=== PATIENT | male | born 1945 | race Caucasian/White ===

== ENCOUNTER 2022-05-14 14:24 | Emergency (ER) | payer OTHER ==
[~2022-05-14] VITALS: Ht 188 cm; Wt 101.2 kg
[~2022-05-14 14:24] MED LIST: INS70/30PN; INSULANPEN; LISI20; METF500; SOVALDI400 MG; [UNRECOGNIZED DRUG - OTHER]
[2022-05-14] MEDS ORDERED: HYDR1TAB94 PO (16:49)
[2022-05-14] MEDS ORDERED: CEPH500 PO (16:49)
== END 2022-05-14 17:22 | disposition home or self-care (01) ==
LOC: ER 14:24
DX: S68.123A Partial traumatic metacarpophalangeal amputation of left middle finger, initial encounter (principal); E11.9 Type 2 diabetes mellitus without complications; Z79.4 Long term (current) use of insulin; Z79.899 Other long term (current) drug therapy; Z87.891 Personal history of nicotine dependence; W29.3XXA Contact with powered garden and outdoor hand tools and machinery, initial encounter
CPT/HCPCS: 26951; 73130; 96374-59; 96375-59; 99284-25; A9270; J1170; J2405; J7030

== ENCOUNTER 2022-10-07 14:41 | Inpatient (IN) | payer OTHER ==
[~2022-10-07] VITALS: Ht 175.3 cm; Wt 106.4 kg
[~2022-10-07 14:41] MED LIST changes: +CEPH500 PO; +GLUCOPHAGE1000 M1 PO; +HYDR1TAB94 PO; -METF500
[2022-10-07 15:44] LABS: BASOPHILS ABSOLUTE AUTO 0.08 K/mm3 (0.00-0.23); BASOPHILS PERCENT AUTO 1 % (0-2); EOSINOPHILS ABSOLUTE AUTO 0.24 K/mm3 (0.00-0.68); EOSINOPHILS PERCENT AUTO 2 % (0-6); Hematocrit 37.3 % (37.0-53.0); Hemoglobin 12.7 g/dL (13.5-17.5); IMMATURE GRAN ABSOLUTE AUTO 0.07 K/mm3 (0.00-0.10); IMMATURE GRAN PERCENT AUTO 0 % (0-1); LYMPHOCYTES ABSOLUTE AUTO 0.88 K/mm3 (0.84-5.20); LYMPHOCYTES PERCENT AUTO 6 % (21-46); MONOCYTES ABSOLUTE AUTO 0.84 K/mm3 (0.16-1.47); MONOCYTES PERCENT AUTO 5 % (4-13); Mean Corpuscular HGB 29.9 pg (26.0-34.0); Mean Corpuscular Volume 88 fL (80-100); Mean Platelet Volume 10.2 fL (9.1-12.4); NEUTROPHILS PERCENT AUTO 87 % (41-73); Platelet Count 192 K/mm3 (150-400); RDW Coefficient Variation 13.2 % (11.7-14.2); RDW Standard Deviation 42.1 fL (35.1-46.3); Red Blood Cell Count 4.25 M/mm3 (4.30-5.90); White Blood Cell Count 15.91 K/mm3 (4.00-11.30)
[2022-10-07 15:57] LABS: Albumin, Blood 3.5 g/dL (3.4-5.0); Albumin/Globulin Ratio 0.7 (0.8-1.8); Bilirubin, Total 0.3 mg/dL (0.1-1.0); Bun/Creatinine Ratio 25.8 (12.0-20.0); Calcium, Blood 9.7 mg/dL (8.5-10.1); Creatinine, Blood 1.28 mg/dL (0.60-1.20); Globulin, Blood 4.8 g/dL (2.2-4.0); Total Protein, Blood 8.3 g/dL (6.4-8.2)
[2022-10-07 16:08] LABS: Influenza A, PCR NEGATIVE (NEGATIVE); Influenza B, PCR NEGATIVE (NEGATIVE); Resp Syncytial Virus, PCR NEGATIVE (NEGATIVE); SARS-Cov-2 (COVID-19) PCR, MMC NEGATIVE (NEGATIVE)
[2022-10-07 16:35] LABS: Base Excess Venous -1.5 mmol/L; Bicarbonate Venous 22.9 mmol/L (24.0-30.0); PCO2 Venous 42.2 mmHg (38-42); pH Blood Venous 7.36 (7.34-7.37)
[2022-10-07 16:56] LABS: Source, Urine Clean Catch
[2022-10-07 17:03] LABS: Appearance, Urine Clear (Clear); Bilirubin, Urine Neg (Neg); Blood, Urine Neg (Neg); Color, Urine Yellow (P-Yellow); Glucose Qualitative, Urine 4+ (Neg); Ketones, Urine Neg (Neg); Leukocyte Esterase, Urine Neg (Neg); Nitrite, Urine Neg (Neg); Protein, Urine Neg (Neg); Specific Gravity, Urine 1.015 (1.003-1.022); Urobilinogen, Urine NORM (Normal)
[2022-10-07 19:23] LABS: BODY FLUID RBC 0.029 M/mm3 (0-0)
[2022-10-07 20:03] LABS: RBC Count, Synovial Fluid 29000 /mm3 (0-0)
[2022-10-07 20:06] LABS: WBC Count, Synovial Fluid 137980 /mm3 (0-180)
[2022-10-07 21:05] LABS: Eos, Synovial Fluid 1 % (0-2); Lymphs, Synovial Fluid 3 % (0-15); Monocytes/Macrophages, Synovia 2 % (0-65); Neutrophils, Synovial Fluid 94 % (0-24)
[2022-10-07 21:06] LABS: Appearance, Synovial Fluid Cloudy (Clear); Color, Synovial Fluid Dark Yellow (None-P Yel)
--- NOTE | 2022-10-08 05:39 | NUR ---
PT ADMITTED RIGHT BEFORE CHANGE OF SHIFT- PT A&O X 4- PT REPORTS RIGHT KNEE CONTINUES TO BE NUMB FROM THE ASPIRATION IN THE ED- PT MEDICATED FOR PAIN IN THE RIGHT KNEE IN THE NIGHT- PT USES URINAL WITHOUT PROBLEMS-PT NPO AFTER MIDNIGHT FOR ORTHO CONSULT ORDERED- BED LOW POSITION, CALL LIGHT WITHIN REACH
[2022-10-08 05:45] LABS: BASOPHILS ABSOLUTE AUTO 0.08 K/mm3 (0.00-0.23); BASOPHILS PERCENT AUTO 0 % (0-2); EOSINOPHILS ABSOLUTE AUTO 0.03 K/mm3 (0.00-0.68); EOSINOPHILS PERCENT AUTO 0 % (0-6); Hemoglobin 11.7 g/dL (13.5-17.5); IMMATURE GRAN ABSOLUTE AUTO 0.12 K/mm3 (0.00-0.10); IMMATURE GRAN PERCENT AUTO 1 % (0-1); LYMPHOCYTES ABSOLUTE AUTO 1.34 K/mm3 (0.84-5.20); LYMPHOCYTES PERCENT AUTO 7 % (21-46); MONOCYTES ABSOLUTE AUTO 2.16 K/mm3 (0.16-1.47); MONOCYTES PERCENT AUTO 11 % (4-13); Mean Corpuscular HGB 29.2 pg (26.0-34.0); Mean Corpuscular HGB Conc 32.5 g/dL (31.5-36.5); Mean Corpuscular Volume 90 fL (80-100); Mean Platelet Volume 11.1 fL (9.1-12.4); NEUTROPHILS ABSOLUTE AUTO 16.54 K/mm3 (1.96-9.15); NEUTROPHILS PERCENT AUTO 82 % (41-73); Platelet Count 190 K/mm3 (150-400); RDW Coefficient Variation 13.5 % (11.7-14.2); RDW Standard Deviation 44.1 fL (35.1-46.3); Red Blood Cell Count 4.01 M/mm3 (4.30-5.90); White Blood Cell Count 20.27 K/mm3 (4.00-11.30)
[2022-10-08 06:30] LABS: Magnesium, Blood 2.2 mg/dL (1.6-2.4)
[2022-10-08 06:31] LABS: Albumin, Blood 3.1 g/dL (3.4-5.0); Albumin/Globulin Ratio 0.7 (0.8-1.8); Bilirubin, Total 0.3 mg/dL (0.1-1.0); Bun/Creatinine Ratio 23.3 (12.0-20.0); Calcium, Blood 9.3 mg/dL (8.5-10.1); Creatinine, Blood 1.5 mg/dL (0.60-1.20); Globulin, Blood 4.5 g/dL (2.2-4.0); Potassium, Blood 4.1 mmol/L (3.5-5.5); Total Protein, Blood 7.6 g/dL (6.4-8.2)
--- NOTE | 2022-10-08 17:29 | NUR ---
SHIFT SUMMARY: PT A&O X4. PT PLEASANT AND COOPERATIVE WITH CARE. PT WAS UPSET THIS AM DUE TO THE FACT THAT HE WAS IN 9-10/10 PAIN AND 5MG OXYCODONE DID NOT HELP. TALKED TO DR. MELISSA WHO ORDERED PT 50MCG FENTANYL Q4 PRN. PT STATES FENTANYL WORKS GREAT FOR HIS PAIN. PT ALSO VERY CONCERNED ABOUT HOME MEDICATIONS NOT BEING ON EMAR AND THE FACT HE COULD NOT EAT ANYTHING. INFORMED PT THAT HE IS NPO UNTIL ORTHO CONSULT AND WOULD NEED A LIST OF HOME MEDICATIONS. PT STATES WOULD BRING LIST IN. DR. GARAY ARRIVED AROUND 1445 FOR OTHO CONSULT ON R. KNEE. REMOVED 50CC FLUID. PLAN TO PUT DRAIN IN TOMORROW. NPO AFTER MIDNIGHT. LR RUNNING @100/HR. NO COVERAGE NEEDED FOR Q6 BLOOD SUGARS. CALL LIGHT IN REACH. BED IN LOWEST POSITION. WILL CONTINUE TO MONITOR.
[2022-10-09] MEDS ORDERED: HYDROCODONE-AC1 EA19 PO (03:08)
[2022-10-09] MEDS ORDERED: ACET500 PO (03:08)
[2022-10-09] MEDS ORDERED: ALBU90OI INH (03:09)
[2022-10-09] MEDS ORDERED: ALOGLIPTIN12.5 M1 PO (03:10)
[2022-10-09] MEDS ORDERED: AMLO10 PO (03:10)
[2022-10-09] MEDS ORDERED: ELIQUIS5 M2 PO (03:10)
[2022-10-09] MEDS ORDERED: ATOR20 PO (03:11)
[2022-10-09] MEDS ORDERED: CHLO25B PO (03:11)
[2022-10-09] MEDS ORDERED: ESCI10 PO (03:11)
[2022-10-09] MEDS ORDERED: FENO48 PO (03:12)
[2022-10-09] MEDS ORDERED: GLUCOSE4 GM PO (03:13)
[2022-10-09] MEDS ORDERED: BASAGLAR K100 UNIT/1 SC (03:14)
[2022-10-09] MEDS ORDERED: LIDO700A20 TOP (03:14)
[2022-10-09] MEDS ORDERED: ZESTRIL40 M1 PO (03:15)
[2022-10-09] MEDS ORDERED: LISI5 PO (03:16)
[2022-10-09] MEDS ORDERED: TORSE20 PO (03:17)
[2022-10-09] MEDS ORDERED: METO25 PO (03:17)
[2022-10-09 05:25] LABS: BASOPHILS ABSOLUTE AUTO 0.05 K/mm3 (0.00-0.23); BASOPHILS PERCENT AUTO 0 % (0-2); EOSINOPHILS ABSOLUTE AUTO 0.01 K/mm3 (0.00-0.68); EOSINOPHILS PERCENT AUTO 0 % (0-6); Hematocrit 32.5 % (37.0-53.0); Hemoglobin 10.8 g/dL (13.5-17.5); IMMATURE GRAN ABSOLUTE AUTO 0.23 K/mm3 (0.00-0.10); IMMATURE GRAN PERCENT AUTO 1 % (0-1); LYMPHOCYTES PERCENT AUTO 5 % (21-46); MONOCYTES ABSOLUTE AUTO 1.73 K/mm3 (0.16-1.47); MONOCYTES PERCENT AUTO 9 % (4-13); Mean Corpuscular HGB 29.3 pg (26.0-34.0); Mean Corpuscular HGB Conc 33.2 g/dL (31.5-36.5); Mean Corpuscular Volume 88 fL (80-100); Mean Platelet Volume 10.7 fL (9.1-12.4); NEUTROPHILS ABSOLUTE AUTO 15.75 K/mm3 (1.96-9.15); NEUTROPHILS PERCENT AUTO 84 % (41-73); Platelet Count 238 K/mm3 (150-400); RDW Coefficient Variation 13.4 % (11.7-14.2); RDW Standard Deviation 43.8 fL (35.1-46.3); Red Blood Cell Count 3.69 M/mm3 (4.30-5.90); White Blood Cell Count 18.77 K/mm3 (4.00-11.30)
--- NOTE | 2022-10-09 05:30 | NUR ---
SHIFT SUMMARY PT A&O X 4, PT REQUESTED FENTANYL WHEN AVAILABLE AT BEDSIDE ROUNDS- MEDICATED PER D.O.- PT SELF REMOVED IV IN ERROR STARTED NEW IV RIGHT FOREARM- IV INFUSING WITHOUT PROBLEMS- PT NPO AT MIDNIGHT PER ORDER- BED LOW POSITION, CALL LIGHT WITHIN REACH, BED ALARM IN PLACE
[2022-10-09 06:05] LABS: Albumin, Blood 2.6 g/dL (3.4-5.0); Anion Gap 8 mmol/L (6-16); Blood Urea Nitrogen 23 mg/dL (8-24); Bun/Creatinine Ratio 19.7 (12.0-20.0); CO2, Blood 21 mmol/L (21-32); Calcium, Blood 8.9 mg/dL (8.5-10.1); Chloride, Blood 102 mmol/L (98-108); Creatinine, Blood 1.17 mg/dL (0.60-1.20); Glomerular Filtration Rate 64 (60-); Glucose, Blood 215 mg/dL (70-99); Phosphorus, Blood 2.2 mg/dL (2.5-4.9); Potassium, Blood 3.8 mmol/L (3.5-5.5); Sodium, Blood 131 mmol/L (136-145)
--- NOTE | 2022-10-09 11:24 | NUR ---
DUE TO PT GETTING SURGERY TOMORROW INSTEAD OF TODAY, CHANGED INSULIN TO AC/HS UNTIL NPO AFTER MIDNIGHT.
--- NOTE | 2022-10-09 18:22 | NUR ---
SHIFT SUMMARY: PT A&O X4. PT HAS BEEN PLEASANT AND COOPERATIVE WITH CARE. DR. GARAY REMOVED FLUID TWICE THIS SHIFT FROM PT KNEE. PT STATES PAIN IS MORE TOLERABLE AFTER FLUID REMOVAL. PT RECEIVED PAIN MEDICATION PER EMAR WHICH INCLUDED FENTANYL AND NORCO 5/325. PLAN FOR PROCEDURE TOMORROW ON R. KNEE. NPO AFTER MIDNIGHT. HOME MEDICATIONS ADDED TO EMAR. PT TO GO DOWN FOR CT OF R. KNEE JOINT AND X-RAY OF R. TOE DUE TO DIABETIC ULCER. LR D/C. CALL LIGHT IN REACH. BED IN LOWEST POSITION. WILL CONTINUE TO MONITOR.
[2022-10-09 19:18] LABS: Vancomycin, Trough 5.8 ug/mL (5.0-10.0)
--- NOTE | 2022-10-09 19:46 | NUR ---
ASSISTED TO [facility] TO GO TO RADIOLOGY FOR CT.
--- NOTE | 2022-10-09 23:20 | NUR ---
WILL BE NPO AFTER 0000 FOR AM PROCEDURE. DISCUSSED THIS WITH PT. PT VOICED UNDERSTANDING. CALL LIGHT IN REACH.
--- NOTE | 2022-10-10 03:43 | NUR ---
TECHNICAL ASST SUMMARY VSS. ALERT AND ORIENTED. HAS REQUESTED/RECEIVED ANALGESICS FOR RIGHT KNEE PAIN - SEE MAR FOR DETAILS. SCHEDULED FOR PROCEDURE OF KNEE LATER TODAY. CURRENLTY NPO FOR SAID PROCEDURE. ON BEDREST UNTIL POST PROCEDURE FOR SAFETY REASONS. HAS BEEN RESTING QUIETLY AT INTERVALS SINCE HS. CALL LIGHT IN REACH. WILL CONTINUE TO MONITOR
[2022-10-10 05:26] LABS: BASOPHILS ABSOLUTE AUTO 0.06 K/mm3 (0.00-0.23); BASOPHILS PERCENT AUTO 0 % (0-2); EOSINOPHILS ABSOLUTE AUTO 0.15 K/mm3 (0.00-0.68); EOSINOPHILS PERCENT AUTO 1 % (0-6); Hematocrit 33.4 % (37.0-53.0); Hemoglobin 11.2 g/dL (13.5-17.5); IMMATURE GRAN ABSOLUTE AUTO 0.07 K/mm3 (0.00-0.10); IMMATURE GRAN PERCENT AUTO 1 % (0-1); LYMPHOCYTES ABSOLUTE AUTO 0.99 K/mm3 (0.84-5.20); LYMPHOCYTES PERCENT AUTO 7 % (21-46); MONOCYTES ABSOLUTE AUTO 1.18 K/mm3 (0.16-1.47); MONOCYTES PERCENT AUTO 8 % (4-13); Mean Corpuscular HGB 29.9 pg (26.0-34.0); Mean Corpuscular HGB Conc 33.5 g/dL (31.5-36.5); Mean Corpuscular Volume 89 fL (80-100); NEUTROPHILS ABSOLUTE AUTO 11.71 K/mm3 (1.96-9.15); NEUTROPHILS PERCENT AUTO 83 % (41-73); Platelet Count 184 K/mm3 (150-400); RDW Coefficient Variation 13.5 % (11.7-14.2); RDW Standard Deviation 44.1 fL (35.1-46.3); Red Blood Cell Count 3.75 M/mm3 (4.30-5.90); White Blood Cell Count 14.16 K/mm3 (4.00-11.30)
[2022-10-10 05:53] LABS: Albumin, Blood 2.6 g/dL (3.4-5.0); Anion Gap 4 mmol/L (6-16); Blood Urea Nitrogen 20 mg/dL (8-24); Bun/Creatinine Ratio 20.9 (12.0-20.0); CO2, Blood 27 mmol/L (21-32); Calcium, Blood 8.7 mg/dL (8.5-10.1); Chloride, Blood 102 mmol/L (98-108); Creatinine, Blood 0.96 mg/dL (0.60-1.20); Glomerular Filtration Rate 81 (60-); Glucose, Blood 162 mg/dL (70-99); Phosphorus, Blood 1.9 mg/dL (2.5-4.9); Sodium, Blood 133 mmol/L (136-145)
--- NOTE | 2022-10-10 12:48 | NUR ---
PRE-OP NOTE PT DROWSY BUT AWAKE, A&OX4, NO ACUTE CONCERNS, VSS. Pre-Op teaching done. Pt verbalizes understanding. Patient confirms NPO status and agrees with scheduled surgery.
--- NOTE | 2022-10-10 13:48 | NUR ---
10/10/22 1348 Yessy Willard NO ABO PER DR. ROSSI. PT ON SCHEDULED [facility]
--- NOTE | 2022-10-10 16:24 | NUR ---
PT BEING TRANSFERRED TO ROOM 218 POST-OP- CALLED REPORT TO RITIKA AT 1615- ALL BELONGINGS SENT TO ROOM AND ALL MEDS FROM DRAWER AND FRIE. CALLED GONZALO () AND NOTIFIED HER THAT HER WILL BE GOING INTO ROOM 218
[2022-10-10 17:40] LABS: International Normalized Ratio 1.1; Prothrombin Time Results 11.5 Sec (9.7-11.5)
--- NOTE | 2022-10-10 18:40 | NUR ---
SHIFT SUMMARY PT A&OX4, VSS/3LNC, FLACA PO, PAIN TREATED WITH OXY 5 MG, IVF & ABX PER EMAR, AWAITING POST OP VOID. TRANSFERRED APPROX 1700 FROM PACU, S/P R TK REVISION, AQUACEL/JC & POLAR ANABELLE ON, WIGGLES TOES, FWB, NOT OOB YET. WILL REPORT TO ONCKARINA MOE RN.
[2022-10-10 19:35] LABS: Vancomycin, Trough 6.7 ug/mL (5.0-10.0)
[2022-10-11 04:22] LABS: BASOPHILS ABSOLUTE AUTO 0.02 K/mm3 (0.00-0.23); BASOPHILS PERCENT AUTO 0 % (0-2); EOSINOPHILS ABSOLUTE AUTO 0.01 K/mm3 (0.00-0.68); EOSINOPHILS PERCENT AUTO 0 % (0-6); Hematocrit 29.9 % (37.0-53.0); IMMATURE GRAN ABSOLUTE AUTO 0.11 K/mm3 (0.00-0.10); IMMATURE GRAN PERCENT AUTO 1 % (0-1); LYMPHOCYTES ABSOLUTE AUTO 0.56 K/mm3 (0.84-5.20); LYMPHOCYTES PERCENT AUTO 5 % (21-46); MONOCYTES ABSOLUTE AUTO 0.54 K/mm3 (0.16-1.47); MONOCYTES PERCENT AUTO 5 % (4-13); Mean Corpuscular HGB 29.2 pg (26.0-34.0); Mean Corpuscular HGB Conc 33.4 g/dL (31.5-36.5); Mean Corpuscular Volume 87 fL (80-100); NEUTROPHILS ABSOLUTE AUTO 9.29 K/mm3 (1.96-9.15); NEUTROPHILS PERCENT AUTO 88 % (41-73); Platelet Count 253 K/mm3 (150-400); RDW Coefficient Variation 13.6 % (11.7-14.2); RDW Standard Deviation 43.8 fL (35.1-46.3); Red Blood Cell Count 3.43 M/mm3 (4.30-5.90); White Blood Cell Count 10.53 K/mm3 (4.00-11.30)
--- NOTE | 2022-10-11 04:39 | NUR ---
SHIFT SUMMARY PT WEANED OFF O2 VIA NC TO RA. SATS STABLE. DENIES SOB. OCCASSIONAL NONPROD COUGH. LUNGS DIM T/O. RIGHT KNEE DRESSING REMAINS CDI WITH POLAR PACK IN PLACE. NO DRAINAGE NOTED IN HEMOVAC DRAIN. 1 [place] FOR PAIN MANAGEMENT. USING URINAL TO VOID. IV ABX PER ORDERS. PLAN TO MOBILIZE AND GET OOB BY END OF SHIFT. USES CALL LIGHT APPROPRIATELY.
[2022-10-11 04:49] LABS: Albumin, Blood 2.3 g/dL (3.4-5.0); Anion Gap 7 mmol/L (6-16); Blood Urea Nitrogen 33 mg/dL (8-24); Bun/Creatinine Ratio 26.8 (12.0-20.0); CO2, Blood 23 mmol/L (21-32); Calcium, Blood 8.5 mg/dL (8.5-10.1); Chloride, Blood 100 mmol/L (98-108); Creatinine, Blood 1.23 mg/dL (0.60-1.20); Glomerular Filtration Rate 60 (60-); Glucose, Blood 343 mg/dL (70-99); Phosphorus, Blood 2.5 mg/dL (2.5-4.9); Potassium, Blood 4.4 mmol/L (3.5-5.5); Sodium, Blood 130 mmol/L (136-145)
--- NOTE | 2022-10-11 11:39 | NUR ---
"Spiritual Care | Nurse request Pt. is awake in bed and welcomes my visit. Pt. is intially cool to the prospect of a spiritula care visit, but rapport is established as I facilitate a life review. Pt. is able to verbalize the role of God in his life, but is cool to organized latter-day. Through theraputic listening and continued rapport building we were able to identify a common relational connection. Pt. displayed evidence of an uplifted spirit. Prayed with Pt. Pt. verbalized gratitude for the spiritual care visit, and welcomed this cut off sawyer log to return."
--- NOTE | 2022-10-11 17:42 | NUR ---
SHIFT SUMMARY PT A&OX4, VSS/RA, FLACA PO, VOIDING WELL, AMB SBA FWW & GB, UP TO CHAIR T/O SHIFT, PAIN MANAGED WELL WITH NORCO 10 Q4P. PICC LINE PLACED TODAY FOR LONG-TERM ABX TREATMENT POST-OP. SL/ABX PER EMAR. POD1 R KNEE REVISION, AQUACEL CDI, HEMOVAC IN PLACE. WILL REPORT TO ONCOMING PAYAL HOLDEN.
[2022-10-11 20:04] LABS: Vancomycin, Trough 25.8 ug/mL (5.0-10.0)
--- NOTE | 2022-10-12 04:17 | NUR ---
SHIFT SUMMARY S/P R KNEE REVISION. HAS RESTED WELL T/O SHIFT. 1-2 NORDE FOR PAIN MANAGEMENT. IV ABX PER ORDERS. HEMOVAC DRAIN WITH NO OUTPUT IN COLLECTION CHAMBER, BUT HAS HAD MODERATE SS DRAINAGE AROUND INSERTION SITE--REINFORCED. AQUACEL DRESSING REMAINS CDI. UP WITH 1 SBA ASSIST. USES CALL LIGHT APPROPRIATEY.
[2022-10-12 05:40] LABS: BASOPHILS ABSOLUTE AUTO 0.05 K/mm3 (0.00-0.23); BASOPHILS PERCENT AUTO 1 % (0-2); EOSINOPHILS ABSOLUTE AUTO 0.23 K/mm3 (0.00-0.68); EOSINOPHILS PERCENT AUTO 3 % (0-6); Hematocrit 30.8 % (37.0-53.0); Hemoglobin 10.5 g/dL (13.5-17.5); IMMATURE GRAN ABSOLUTE AUTO 0.08 K/mm3 (0.00-0.10); IMMATURE GRAN PERCENT AUTO 1 % (0-1); LYMPHOCYTES PERCENT AUTO 16 % (21-46); MONOCYTES ABSOLUTE AUTO 0.96 K/mm3 (0.16-1.47); MONOCYTES PERCENT AUTO 10 % (4-13); Mean Corpuscular HGB 29.2 pg (26.0-34.0); Mean Corpuscular HGB Conc 34.1 g/dL (31.5-36.5); Mean Corpuscular Volume 86 fL (80-100); Mean Platelet Volume 10.3 fL (9.1-12.4); NEUTROPHILS ABSOLUTE AUTO 6.48 K/mm3 (1.96-9.15); NEUTROPHILS PERCENT AUTO 70 % (41-73); Platelet Count 320 K/mm3 (150-400); RDW Coefficient Variation 13.4 % (11.7-14.2); RDW Standard Deviation 42.1 fL (35.1-46.3)
[2022-10-12 06:08] LABS: Albumin, Blood 2.4 g/dL (3.4-5.0); Anion Gap 6 mmol/L (6-16); Blood Urea Nitrogen 32 mg/dL (8-24); Bun/Creatinine Ratio 35.2 (12.0-20.0); CO2, Blood 27 mmol/L (21-32); Chloride, Blood 106 mmol/L (98-108); Creatinine, Blood 0.91 mg/dL (0.60-1.20); Glomerular Filtration Rate 87 (60-); Glucose, Blood 123 mg/dL (70-99); Phosphorus, Blood 2.3 mg/dL (2.5-4.9); Potassium, Blood 3.7 mmol/L (3.5-5.5); Sodium, Blood 139 mmol/L (136-145)
[2022-10-12] MEDS ORDERED: Acetaminophen650 M1 PO (15:46)
[2022-10-12] MEDS ORDERED: VISBIOME 112.51 EACH PO (15:50)
[2022-10-12] MEDS ORDERED: CEFTRIAXONE2 G1 IV (15:50)
--- NOTE | 2022-10-12 16:16 | NUR ---
DISCHARGE NOTE: PATIENT AND PATIENTS WERE BOTH EDUCATED ON DISCHARGE INSTRUCTIONS. BOTH VERBALIZED UNDERSTANDING OF INSTRUCTIONS AND HAD NO FURTHER QUESTIONS. HIS LEFT FOREARM IV WAS TAKEN OUT AND WNL. HIS PICC IN HIS KVNG IS BEING DISCHARGED HOME WITH HIM FOR WHEN HE GOES TO [facility] FOR ABX INFUSIONS FOR 4-6 WEEKS. PICC HOME MANAGEMENT EDUCATION WAS PRINTED AND VERBALLY TALKED THROUGH TO THE AND PATIENT. BOTH VERBALIZED UNDERSTANDING OF THIS EDUCATION AND HAD NO FURTHER QUESTIONS. PAIN IS MANAGED WITH ORAL PAIN MEDICATIONS. HIS RIGHT KNEE HAS AN AQUACEL THAT IS C/D/I. ON THE RIGHT SIDE OF HIS KNEE WAS AN OLD DRAIN SITE THAT HAS AN ABD PAD WITH FOAM TAPE THAT IS ALSO C/D/I. PATIENT DENIES NUMBNESS AND TINGLING IN ALL EXTREMITIES. HE IS A SBA WITH FWW AND GAIT BELT. PATIENT IS TOLERATING PO INTAKE AND IS VOIDING/HAD A BM. PATIENT IS DRESSED AND HAS PERSONAL ITEMS IN THE ROOM GATHERED. HE IS BEING WHEELCHAIRED OUT TO HIS WIFES CAR TO BE TAKEN HOME.
[2022-10-13] MEDS ORDERED: NOVOLOG FL100 UNIT/3 SC (00:40)
[2022-10-13] MEDS ORDERED: Ribavirin200 M1 PO (00:51)
[2022-10-13] MEDS ORDERED: SOVALDI PO (00:52)
== END 2022-10-12 16:21 | disposition home health service (06) | DRG 485 ==
LOC: ER 14:41 → MEDS 14:42 → SURS 10-08 11:03 → MEDS 10-08 11:03 → SURS 10-10 16:15
PROVIDERS: Emergency Medicine; Family Medicine; Orthopaedic Surgery; Pharmacist; Physician Assistant; ADMIT Student in an Organized Health Care Education/Training Program
PROC: 0S9C3ZZ Drainage of Right Knee Joint, Percutaneous Approach (ICD-10-PCS; 2022-10-07)
PROC: 3E03329 Introduction of Other Anti-infective into Peripheral Vein, Percutaneous Approach (ICD-10-PCS; 2022-10-08)
PROC: 4A033R1 Measurement of Arterial Saturation, Peripheral, Percutaneous Approach (ICD-10-PCS; 2022-10-08)
PROC: 0SBC0ZZ Excision of Right Knee Joint, Open Approach (ICD-10-PCS; 2022-10-10)
PROC: 0SUV09Z Supplement Right Knee Joint, Tibial Surface with Liner, Open Approach (ICD-10-PCS; 2022-10-10)
PROC: 3E0U029 Introduction of Other Anti-infective into Joints, Open Approach (ICD-10-PCS; 2022-10-10)
PROC: 0SPC09Z Removal of Liner from Right Knee Joint, Open Approach (ICD-10-PCS; principal; 2022-10-10 12:30)
PROC: 02HV33Z Insertion of Infusion Device into Superior Vena Cava, Percutaneous Approach (ICD-10-PCS; 2022-10-11)
DX: T84.53XA Infection and inflammatory reaction due to internal right knee prosthesis, initial encounter (principal); A40.8 Other streptococcal sepsis; R65.20 Severe sepsis without septic shock; J96.02 Acute respiratory failure with hypercapnia; M00.261 Other streptococcal arthritis, right knee; I48.20 Chronic atrial fibrillation, unspecified; E87.1 Hypo-osmolality and hyponatremia; E83.39 Other disorders of phosphorus metabolism; N18.30 Chronic kidney disease, stage 3 unspecified; I12.9 Hypertensive chronic kidney disease with stage 1 through stage 4 chronic kidney disease, or unspecified chronic kidney disease; E11.22 Type 2 diabetes mellitus with diabetic chronic kidney disease; D63.1 Anemia in chronic kidney disease; E88.09 Other disorders of plasma-protein metabolism, not elsewhere classified; B19.20 Unspecified viral hepatitis C without hepatic coma; M19.90 Unspecified osteoarthritis, unspecified site; E78.00 Pure hypercholesterolemia, unspecified; E11.65 Type 2 diabetes mellitus with hyperglycemia; Z20.822 Contact with and (suspected) exposure to COVID-19; M25.461 Effusion, right knee; Z96.653 Presence of artificial knee joint, bilateral; Z90.49 Acquired absence of other specified parts of digestive tract; Z98.890 Other specified postprocedural states; Z98.1 Arthrodesis status; Z98.42 Cataract extraction status, left eye; Z87.891 Personal history of nicotine dependence; Z79.4 Long term (current) use of insulin; Z79.84 Long term (current) use of oral hypoglycemic drugs; Z79.811 Long term (current) use of aromatase inhibitors; Z79.899 Other long term (current) drug therapy; Z79.2 Long term (current) use of antibiotics; Z79.891 Long term (current) use of opiate analgesic; Z79.01 Long term (current) use of anticoagulants; Z89.022 Acquired absence of left finger(s); Y83.8 Other surgical procedures as the cause of abnormal reaction of the patient, or of later complication, without mention of misadventure at the time of the procedure
CPT/HCPCS: 0241U; 20610; 36415; 36569; 71045; 73560-RT; 73562-RT; 73630; 73700; 80053; 80069; 80202; 81003; 82803; 82947; 83036; 83605; 83690; 83735; 83880; 84484; 85025; 85610; 85651; 85730; 86140; 87040; 87070; 87075; 87147; 87205; 89051; 93005; 93010; 93308; 93321; 96361-59; 96374-59; 96375; 96376; 97110; 97110-CQ; 97116; 97116-CQ; 97162; 99284-25; A9270; C1751; C1776; G0378; J0171; J0690; J0696; J0735; J1100; J1815; J1885; J2310; J2370; J2405; J2704; J2795; J3010; J3370; J7030; J7050; J7120

== ENCOUNTER 2022-10-12 20:53 | Inpatient (IN) | payer OTHER ==
[~2022-10-12] VITALS: Ht 193 cm; Wt 99.8 kg
[~2022-10-12 20:53] MED LIST changes: +ACET500 PO; +ALBU90OI INH; +ALOGLIPTIN12.5 M1 PO; +AMLO10 PO; +ATOR20 PO; +Acetaminophen650 M1 PO; +BASAGLAR K100 UNIT/1 SC; +CEFTRIAXONE2 G1 IV; +CHLO25B PO; +ELIQUIS5 M2 PO; +ESCI10 PO; +FENO48 PO; +GLUCOSE4 GM PO; +HYDROCODONE-AC1 EA19 PO; +LIDO700A20 TOP; +LISI5 PO; +METO25 PO; +TORSE20 PO; +VISBIOME 112.51 EACH PO; +ZESTRIL40 M1 PO
[2022-10-12 23:30] LABS: BASOPHILS PERCENT AUTO 1 % (0-2); EOSINOPHILS PERCENT AUTO 1 % (0-6); Hematocrit 33.3 % (37.0-53.0); Hemoglobin 11.1 g/dL (13.5-17.5); IMMATURE GRAN ABSOLUTE AUTO 0.25 K/mm3 (0.00-0.10); IMMATURE GRAN PERCENT AUTO 2 % (0-1); LYMPHOCYTES ABSOLUTE AUTO 1.45 K/mm3 (0.84-5.20); LYMPHOCYTES PERCENT AUTO 11 % (21-46); MONOCYTES PERCENT AUTO 10 % (4-13); Mean Corpuscular HGB 28.9 pg (26.0-34.0); Mean Corpuscular HGB Conc 33.3 g/dL (31.5-36.5); Mean Corpuscular Volume 87 fL (80-100); Mean Platelet Volume 11.4 fL (9.1-12.4); NEUTROPHILS ABSOLUTE AUTO 9.53 K/mm3 (1.96-9.15); NEUTROPHILS PERCENT AUTO 75 % (41-73); Platelet Count 213 K/mm3 (150-400); RDW Coefficient Variation 13.5 % (11.7-14.2); RDW Standard Deviation 42.5 fL (35.1-46.3); Red Blood Cell Count 3.84 M/mm3 (4.30-5.90); White Blood Cell Count 12.73 K/mm3 (4.00-11.30)
[2022-10-12 23:42] LABS: Albumin, Blood 2.5 g/dL (3.4-5.0); Albumin/Globulin Ratio 0.5 (0.8-1.8); Bilirubin, Total 0.4 mg/dL (0.1-1.0); Bun/Creatinine Ratio 28.3 (12.0-20.0); Calcium, Blood 11.1 mg/dL (8.5-10.1); Creatinine, Blood 0.99 mg/dL (0.60-1.20); Globulin, Blood 5.1 g/dL (2.2-4.0); Potassium, Blood 3.9 mmol/L (3.5-5.5); Total Protein, Blood 7.6 g/dL (6.4-8.2)
[2022-10-13] MEDS ORDERED: NOVOLOG FL100 UNIT/3 SC (00:40)
[2022-10-13] MEDS ORDERED: Ribavirin200 M1 PO (00:51)
[2022-10-13] MEDS ORDERED: SOVALDI PO (00:52)
--- NOTE | 2022-10-13 07:18 | NUR ---
SHIFT SUMMARY NOC ADMIT FROM ED WHO LEFT SURGICAL FLOOR AMA YESTERDAY AFTER POST OP R KNEE SURGERY FOR SEPTIC ARTHRITIS. PT A/O X 4 PLEASANT AND COOPERATIVE WITH CARE. PT HAS PICC IN KVNG AND LAC IV ACCESS. PT HAS NS INFUSING @ 75 MLS/HR. PT IS CURRENTLY RESTING WITH BED IN LOWEST POSITION AND CALL LIGHT WITHIN REACH.
--- NOTE | 2022-10-13 18:40 | NUR ---
SHIFT SUMMARY- PT IS A/O, PLESANT AND COOPERATIVE. HIS APPETITE IS POOR. HE SLEPT FOR MOST OF THIS SHIFT. HIS AQUACIL IS C/D/I. RECIEVING IV ABX. HIS BED IS IN THE LOW POSITION AND CALL LIGHT IS WITHIN REACH.
[2022-10-14 04:45] LABS: BASOPHILS ABSOLUTE AUTO 0.11 K/mm3 (0.00-0.23); BASOPHILS PERCENT AUTO 1 % (0-2); EOSINOPHILS PERCENT AUTO 2 % (0-6); Hematocrit 34.6 % (37.0-53.0); Hemoglobin 11.5 g/dL (13.5-17.5); IMMATURE GRAN ABSOLUTE AUTO 0.46 K/mm3 (0.00-0.10); IMMATURE GRAN PERCENT AUTO 3 % (0-1); LYMPHOCYTES ABSOLUTE AUTO 2.13 K/mm3 (0.84-5.20); LYMPHOCYTES PERCENT AUTO 15 % (21-46); MONOCYTES ABSOLUTE AUTO 1.21 K/mm3 (0.16-1.47); MONOCYTES PERCENT AUTO 9 % (4-13); Mean Corpuscular HGB 28.7 pg (26.0-34.0); Mean Corpuscular HGB Conc 33.2 g/dL (31.5-36.5); Mean Corpuscular Volume 86 fL (80-100); Mean Platelet Volume 10.5 fL (9.1-12.4); NEUTROPHILS PERCENT AUTO 70 % (41-73); Platelet Count 378 K/mm3 (150-400); RDW Coefficient Variation 13.2 % (11.7-14.2); RDW Standard Deviation 41.8 fL (35.1-46.3); Red Blood Cell Count 4.01 M/mm3 (4.30-5.90); White Blood Cell Count 14.01 K/mm3 (4.00-11.30)
--- NOTE | 2022-10-14 04:59 | NUR ---
SUMMARY: NO ACUTE EVENTS OVERNIGHT. PATIENT GIVEN PRN HYDRALAZINE FOR ELEVATED BP. PAIN MEDS PER EMAR. PICC LINE IN KVNG. LABS SENT THIS AM. PLEASANT WITH STAFF. STATES HE IS EASILY TRIGERED BY THE BEEPING AND NOISES IN HALLWAY AND MACHINES. PLACED SIGN ON DOOR TO REMIND STAFF TO KEEP HIS DOOR CLOSED. AOX4. CALL LIGHT IN REACH.
[2022-10-14 05:04] LABS: Albumin, Blood 2.5 g/dL (3.4-5.0); Anion Gap 5 mmol/L (6-16); Blood Urea Nitrogen 21 mg/dL (8-24); Bun/Creatinine Ratio 25.1 (12.0-20.0); CO2, Blood 31 mmol/L (21-32); Calcium, Blood 12.2 mg/dL (8.5-10.1); Chloride, Blood 100 mmol/L (98-108); Creatinine, Blood 0.84 mg/dL (0.60-1.20); Glomerular Filtration Rate 90 (60-); Glucose, Blood 174 mg/dL (70-99); Phosphorus, Blood 2.8 mg/dL (2.5-4.9); Potassium, Blood 3.4 mmol/L (3.5-5.5); Sodium, Blood 136 mmol/L (136-145)
--- NOTE | 2022-10-14 20:23 | NUR ---
SHIFT SUMMARY PT A&OX4 AND PLEASANT. DENIED PAIN WHEN ASKED. ICE PLACED ON KNEE IN AFTERNOON BUT DID NOT WANT PAIN MEDICATION. PT WORKED WITH PHYSICAL THERAPY AND OT TODAY AND TOLERATED WELL. PT AMBULATED TO WINDOW WITH FWW AND GAIT BELT IN AFTERNOON. PT USES URINAL INPENDENTLY. CALLS APPROPRIATELY. BED IN LOWEST POSITION AND CALL LIGHT IN REACH.
[2022-10-15 06:31] LABS: BASOPHILS ABSOLUTE AUTO 0.09 K/mm3 (0.00-0.23); BASOPHILS PERCENT AUTO 1 % (0-2); EOSINOPHILS ABSOLUTE AUTO 0.66 K/mm3 (0.00-0.68); EOSINOPHILS PERCENT AUTO 6 % (0-6); Hemoglobin 10.3 g/dL (13.5-17.5); IMMATURE GRAN ABSOLUTE AUTO 0.51 K/mm3 (0.00-0.10); IMMATURE GRAN PERCENT AUTO 5 % (0-1); LYMPHOCYTES ABSOLUTE AUTO 1.97 K/mm3 (0.84-5.20); LYMPHOCYTES PERCENT AUTO 19 % (21-46); MONOCYTES ABSOLUTE AUTO 0.96 K/mm3 (0.16-1.47); MONOCYTES PERCENT AUTO 9 % (4-13); Mean Corpuscular HGB 28.8 pg (26.0-34.0); Mean Corpuscular HGB Conc 33.2 g/dL (31.5-36.5); Mean Corpuscular Volume 87 fL (80-100); Mean Platelet Volume 11.2 fL (9.1-12.4); NEUTROPHILS ABSOLUTE AUTO 6.15 K/mm3 (1.96-9.15); NEUTROPHILS PERCENT AUTO 59 % (41-73); Platelet Count 247 K/mm3 (150-400); RDW Coefficient Variation 13.1 % (11.7-14.2); RDW Standard Deviation 41.9 fL (35.1-46.3); Red Blood Cell Count 3.58 M/mm3 (4.30-5.90); White Blood Cell Count 10.34 K/mm3 (4.00-11.30)
[2022-10-15 07:01] LABS: Albumin, Blood 2.3 g/dL (3.4-5.0); Anion Gap 5 mmol/L (6-16); Blood Urea Nitrogen 27 mg/dL (8-24); Bun/Creatinine Ratio 27.6 (12.0-20.0); CO2, Blood 31 mmol/L (21-32); Calcium, Blood 11.1 mg/dL (8.5-10.1); Chloride, Blood 100 mmol/L (98-108); Creatinine, Blood 0.98 mg/dL (0.60-1.20); Glomerular Filtration Rate 79 (60-); Glucose, Blood 156 mg/dL (70-99); Phosphorus, Blood 2.7 mg/dL (2.5-4.9); Potassium, Blood 3.3 mmol/L (3.5-5.5); Sodium, Blood 136 mmol/L (136-145)
--- NOTE | 2022-10-15 18:30 | NUR ---
SHIFT SUMMARY NO ACUTE CHANGES THIS SHIFT. PT HAS HAD NO C/O P/CP/N/V/SOB. SHAVED THIS AM AND HIS HAS BEEN IN AND OUT THROUGHOUT THE SHIFT. SURGERY CONSULT RELAYED TO DR. FELIX OFFICE TODAY AND PROVIDER IS IN THE PT'S ROOM NOW. WILL REPORT TO ONCOMING NURSE.
[2022-10-16 05:22] LABS: BASOPHILS ABSOLUTE AUTO 0.08 K/mm3 (0.00-0.23); BASOPHILS PERCENT AUTO 1 % (0-2); EOSINOPHILS ABSOLUTE AUTO 0.84 K/mm3 (0.00-0.68); EOSINOPHILS PERCENT AUTO 9 % (0-6); Hematocrit 29.9 % (37.0-53.0); Hemoglobin 10.2 g/dL (13.5-17.5); IMMATURE GRAN ABSOLUTE AUTO 0.34 K/mm3 (0.00-0.10); IMMATURE GRAN PERCENT AUTO 4 % (0-1); LYMPHOCYTES ABSOLUTE AUTO 1.66 K/mm3 (0.84-5.20); LYMPHOCYTES PERCENT AUTO 18 % (21-46); MONOCYTES ABSOLUTE AUTO 0.92 K/mm3 (0.16-1.47); MONOCYTES PERCENT AUTO 10 % (4-13); Mean Corpuscular HGB 29.7 pg (26.0-34.0); Mean Corpuscular HGB Conc 34.1 g/dL (31.5-36.5); Mean Corpuscular Volume 87 fL (80-100); Mean Platelet Volume 9.2 fL (9.1-12.4); NEUTROPHILS ABSOLUTE AUTO 5.63 K/mm3 (1.96-9.15); NEUTROPHILS PERCENT AUTO 60 % (41-73); Platelet Count 489 K/mm3 (150-400); RDW Coefficient Variation 13.2 % (11.7-14.2); RDW Standard Deviation 41.7 fL (35.1-46.3); Red Blood Cell Count 3.43 M/mm3 (4.30-5.90); White Blood Cell Count 9.47 K/mm3 (4.00-11.30)
[2022-10-16 05:50] LABS: Albumin, Blood 2.4 g/dL (3.4-5.0); Anion Gap 3 mmol/L (6-16); Blood Urea Nitrogen 26 mg/dL (8-24); Bun/Creatinine Ratio 31.9 (12.0-20.0); CO2, Blood 28 mmol/L (21-32); Calcium, Blood 9.9 mg/dL (8.5-10.1); Chloride, Blood 103 mmol/L (98-108); Creatinine, Blood 0.82 mg/dL (0.60-1.20); Glomerular Filtration Rate 90 (60-); Glucose, Blood 140 mg/dL (70-99); Phosphorus, Blood 2.2 mg/dL (2.5-4.9); Potassium, Blood 3.5 mmol/L (3.5-5.5); Sodium, Blood 134 mmol/L (136-145)
--- NOTE | 2022-10-16 16:54 | NUR ---
SHIFT SUMMARY PT IS AOX4, NAPPING OFF AND ON MOST OF THE SHIFT. NURSE AND PT AMBULATED UP AND DOWN THE HALLWAY, HE TOLERATED THIS WELL. AQUAGEL BANDAGE CHANGED ON HIS R KNEE, ANOTHER BANDAGE IS LOCATED WITHIN THE ROOM. PT C/O PAIN THIS AM, MEDICATED PER THE EMAR. NO COMPLAINTS SINCE. STILL LOOKING AT POSSIBLE DISCHARGE MONDAY, PENDING DISCHARGE PLANS. BED IN THE LOWEST POSITION, CALL LIGHT WITHIN REACH. WILL REPORT TO THE ONCOMING NURSE.
[2022-10-17 05:28] LABS: Albumin, Blood 2.3 g/dL (3.4-5.0); Anion Gap 4 mmol/L (6-16); Blood Urea Nitrogen 17 mg/dL (8-24); Bun/Creatinine Ratio 20.3 (12.0-20.0); CO2, Blood 29 mmol/L (21-32); Calcium, Blood 9.5 mg/dL (8.5-10.1); Chloride, Blood 105 mmol/L (98-108); Creatinine, Blood 0.84 mg/dL (0.60-1.20); Glomerular Filtration Rate 90 (60-); Glucose, Blood 92 mg/dL (70-99); Phosphorus, Blood 2.2 mg/dL (2.5-4.9); Potassium, Blood 3.7 mmol/L (3.5-5.5); Sodium, Blood 138 mmol/L (136-145)
--- NOTE | 2022-10-17 17:36 | NUR ---
SHIFT SUMMARY NO ACUTE CHANGES THIS SHIFT. STILL WORKING ON THE DISCHARGE PLANNING SO PT CAN RECEIVE IV ABX AT HOME. HE C/O PAIN THIS AM AND WAS MEDICATED PER THE EMAR. PT HAD A FRIEND VISIT THIS SHIFT. NO C/O N/V/CP/SOB THIS SHIFT. PT IS CURRENTLY AMBULATING IN THE HALLWAY AND TOLERATING IT WELL. WILL REPORT TO ONCOMING NURSE.
[2022-10-18 06:15] LABS: Hematocrit 30.1 % (37.0-53.0); Hemoglobin 10.1 g/dL (13.5-17.5); Mean Corpuscular HGB 29.1 pg (26.0-34.0); Mean Corpuscular HGB Conc 33.6 g/dL (31.5-36.5); Mean Corpuscular Volume 87 fL (80-100); Mean Platelet Volume 10.2 fL (9.1-12.4); Platelet Count 383 K/mm3 (150-400); RDW Coefficient Variation 13.4 % (11.7-14.2); RDW Standard Deviation 42.3 fL (35.1-46.3); Red Blood Cell Count 3.47 M/mm3 (4.30-5.90); White Blood Cell Count 9.35 K/mm3 (4.00-11.30)
[2022-10-18 07:05] LABS: Albumin, Blood 2.5 g/dL (3.4-5.0); Albumin/Globulin Ratio 0.5 (0.8-1.8); Bilirubin, Total 0.2 mg/dL (0.1-1.0); Bun/Creatinine Ratio 21.8 (12.0-20.0); C-REACTIVE PROTEIN, EXT RANGE 8.45 mg/dL (0.000-0.300); Calcium, Blood 9.2 mg/dL (8.5-10.1); Creatinine, Blood 0.87 mg/dL (0.60-1.20); Globulin, Blood 4.9 g/dL (2.2-4.0); Percent Saturation 16.9 % (20.0-50.0); Potassium, Blood 3.6 mmol/L (3.5-5.5); Thyroid Stimulating Hormone 0.298 uIU/mL (0.360-4.800); Total Protein, Blood 7.4 g/dL (6.4-8.2)
--- NOTE | 2022-10-18 19:55 | NUR ---
SHIFT SUMMARY: PT A&O X4, PLEASANT, HAPPY AND ABLE TO VOICE NEEDS. PT HAD MODERATE LOWER BACK AND KNEE PAIN DURING THE SHIFT. PT HAS IV FENTANYL, PO TYLENOL, PO TRAMADOL, AND COLD THERAPY FOR PAIN MANAGEMENT. PT SURGICAL SITE HAS MILD REDNESS, DRESSING INTACTED NO DRAINAGE. PT ABLE TO AMBULATE TO THE RESTROOM WITH SBA WITH FWW. PT PARTCIPATED IN THERAPY, SEE PT NOTES. PT HAS DISCHARGE ORDERS FOR HOME WITH HOME HEALTH, PT WILL RECEVIE 5 WKS OF IV ABX AT HOME. PT WILL BE EDUCATED AND TAUGHT ON ABX TREATMENT AND CARE OF PICC LINE BEFORE DISCHARGE. PT IN BED WITH CALL LIGHT WITHIN REACH.
--- NOTE | 2022-10-19 05:06 | NUR ---
SUMMARY: PT A/OX4, IS INDEPENDENT W/FWW AND CALLS APPROPRIATELY TO SPECIFY NEEDS. SURGICAL DX REMAINS C/D/I TO R.KNEE W/COLD THERAPY IN PLACE. SITE HAS MILD SWELLING W/REDNESS BUT NO DRAINAGE OBSERVED. HE WAS MEDICATED W/TRAMADOL PRN FOR TOLERABLE RELIEF OF CHRONIC BACK AND ACUTE KNEE PAIN. HE WAS UP TO TOILET AND AMBULATED IN HALLS AD NARENDRA. NO ACUTE ACUTE CHANGES, VSS/AFEBRILE. PT TO D/C HOME W/HOME HEALTH TODAY AND WILL RECIEVED 5 WKS OUTPATIENT IV ABX. HELDER AND REPORT TO DAY RN.
--- NOTE | 2022-10-19 10:16 | NUR ---
[facility] RN IN TO SEE PT AND PROVIDE EDUCATION FOR HOME IV TREATMENT TO PT AND HIS .
--- NOTE | 2022-10-19 14:45 | NUR ---
DISCHARGE INSTRUCTIONS COMPLETED AND DISCUSSED WITH PT EXPRESSING UNDERSTANDING. NO NEW SCRIPTS BUT HARD SCRIPT GIVEN TO PT FOR TRAMADOL JUST PRIOR TO LEAVING. AFTER [facility] RN IN TO EDUCATE PT SHE NOTIFIED ME THAT NEITHER LUMEN WOULD DRAW BLOOD. CATHFLO ORDERED AND INSTILLED WITH SUCCESSFUL DWELL TIME. SPOKE WITH DR. ZIMMERMAN ABOUT PT NOT USING A CORRECTION INSULIN OR SCALE AT HOME AND SHE COMMENTED FOR PT TO CONTINUE HIS NORMAL DIABETIC ROUTINE AT HOME. TO CURB VIA W/C.
== END 2022-10-19 14:13 | disposition home or self-care (01) | DRG 560 ==
LOC: ER 20:53 → MEDS 20:54 → ER 10-13 00:11 → MEDS 10-13 00:20
PROVIDERS: Family Medicine; Internal Medicine; ADMIT Internal Medicine
PROC: 05HY33Z Insertion of Infusion Device into Upper Vein, Percutaneous Approach (ICD-10-PCS; principal; 2022-10-13)
DX: T84.53XA Infection and inflammatory reaction due to internal right knee prosthesis, initial encounter (principal); E87.1 Hypo-osmolality and hyponatremia; I48.20 Chronic atrial fibrillation, unspecified; M00.261 Other streptococcal arthritis, right knee; R78.81 Bacteremia; E78.00 Pure hypercholesterolemia, unspecified; Z96.653 Presence of artificial knee joint, bilateral; D72.828 Other elevated white blood cell count; I12.9 Hypertensive chronic kidney disease with stage 1 through stage 4 chronic kidney disease, or unspecified chronic kidney disease; D63.1 Anemia in chronic kidney disease; E11.22 Type 2 diabetes mellitus with diabetic chronic kidney disease; N18.30 Chronic kidney disease, stage 3 unspecified; E83.52 Hypercalcemia; E87.6 Hypokalemia; Z28.21 Immunization not carried out because of patient refusal; Z87.891 Personal history of nicotine dependence; Z79.4 Long term (current) use of insulin; Z79.01 Long term (current) use of anticoagulants; Z79.899 Other long term (current) drug therapy; Y83.8 Other surgical procedures as the cause of abnormal reaction of the patient, or of later complication, without mention of misadventure at the time of the procedure
CPT/HCPCS: 80053; 80069; 82306; 82607; 82728; 82746; 82947; 83540; 83550; 83970; 84443; 85025; 85027; 86140; 93005; 93010; 94760; 96372; 96374; 97110; 97116; 97162; 97165; 97530; 97535; 99285-25; A9270; G0378; J0360; J0696; J1650; J1815; J2997; J3010; J7030

== ENCOUNTER → 2022-10-21 | Outpatient (CLI) | payer OTHER ==
[~2022-10-21] MED LIST changes: +NOVOLOG FL100 UNIT/3 SC; +Ribavirin200 M1 PO; +SOVALDI PO
[2022-10-21 17:13] LABS: Albumin, Blood 2.9 g/dL (3.4-5.0); Albumin/Globulin Ratio 0.5 (0.8-1.8); Bilirubin, Total 0.2 mg/dL (0.1-1.0); Bun/Creatinine Ratio 29.7 (12.0-20.0); Calcium, Blood 10.4 mg/dL (8.5-10.1); Creatinine, Blood 1.11 mg/dL (0.60-1.20); Globulin, Blood 5.5 g/dL (2.2-4.0); Hematocrit 32.5 % (37.0-53.0); Hemoglobin 10.4 g/dL (13.5-17.5); Mean Corpuscular HGB 28.3 pg (26.0-34.0); Mean Corpuscular Volume 89 fL (80-100); Mean Platelet Volume 10.1 fL (9.1-12.4); Platelet Count 233 K/mm3 (150-400); Potassium, Blood 4.1 mmol/L (3.5-5.5); RDW Coefficient Variation 13.2 % (11.7-14.2); RDW Standard Deviation 43.2 fL (35.1-46.3); Red Blood Cell Count 3.67 M/mm3 (4.30-5.90); Total Protein, Blood 8.4 g/dL (6.4-8.2); White Blood Cell Count 11.01 K/mm3 (4.00-11.30)
== END | disposition home or self-care (01) ==
LOC: LAB SHORT 15:55
PROVIDERS: Family Medicine
DX: M00.849 Arthritis due to other bacteria, unspecified hand (principal)
CPT/HCPCS: 80053; 85027

== ENCOUNTER → 2022-10-28 | Outpatient (CLI) | payer SELFPAY ==
[2022-10-28 18:07] LABS: Hematocrit 36.2 % (37.0-53.0); Mean Corpuscular HGB 28.8 pg (26.0-34.0); Mean Corpuscular HGB Conc 33.1 g/dL (31.5-36.5); Mean Corpuscular Volume 87 fL (80-100); Mean Platelet Volume 10.1 fL (9.1-12.4); Platelet Count 177 K/mm3 (150-400); RDW Coefficient Variation 13.3 % (11.7-14.2); RDW Standard Deviation 41.7 fL (35.1-46.3); Red Blood Cell Count 4.17 M/mm3 (4.30-5.90); White Blood Cell Count 7.62 K/mm3 (4.00-11.30)
== END | disposition home or self-care (01) ==
LOC: LAB 13:00 → LAB SHORT 13:00
PROVIDERS: Family Medicine
DX: M00.2 Other streptococcal arthritis and polyarthritis (principal)
CPT/HCPCS: 85027

== ENCOUNTER → 2022-11-04 | Outpatient (CLI) | payer SELFPAY ==
[2022-11-04 19:07] LABS: BASOPHILS ABSOLUTE AUTO 0.08 K/mm3 (0.00-0.23); BASOPHILS PERCENT AUTO 1 % (0-2); EOSINOPHILS ABSOLUTE AUTO 0.78 K/mm3 (0.00-0.68); EOSINOPHILS PERCENT AUTO 10 % (0-6); Hematocrit 31.2 % (37.0-53.0); Hemoglobin 10.2 g/dL (13.5-17.5); IMMATURE GRAN ABSOLUTE AUTO 0.03 K/mm3 (0.00-0.10); IMMATURE GRAN PERCENT AUTO 0 % (0-1); LYMPHOCYTES ABSOLUTE AUTO 1.32 K/mm3 (0.84-5.20); LYMPHOCYTES PERCENT AUTO 16 % (21-46); MONOCYTES ABSOLUTE AUTO 1.04 K/mm3 (0.16-1.47); MONOCYTES PERCENT AUTO 13 % (4-13); Mean Corpuscular HGB 28.7 pg (26.0-34.0); Mean Corpuscular HGB Conc 32.7 g/dL (31.5-36.5); Mean Corpuscular Volume 88 fL (80-100); Mean Platelet Volume 10.1 fL (9.1-12.4); NEUTROPHILS ABSOLUTE AUTO 4.83 K/mm3 (1.96-9.15); NEUTROPHILS PERCENT AUTO 60 % (41-73); Platelet Count 145 K/mm3 (150-400); RDW Standard Deviation 45.2 fL (35.1-46.3); Red Blood Cell Count 3.55 M/mm3 (4.30-5.90); White Blood Cell Count 8.08 K/mm3 (4.00-11.30)
[2022-11-04 19:28] LABS: Albumin, Blood 3.2 g/dL (3.4-5.0); Albumin/Globulin Ratio 0.6 (0.8-1.8); Bilirubin, Total 0.1 mg/dL (0.1-1.0); Bun/Creatinine Ratio 29.8 (12.0-20.0); Calcium, Blood 9.8 mg/dL (8.5-10.1); Creatinine, Blood 0.97 mg/dL (0.60-1.20); Globulin, Blood 5.4 g/dL (2.2-4.0); Total Protein, Blood 8.6 g/dL (6.4-8.2)
== END | disposition home or self-care (01) ==
LOC: LAB SHORT 14:45
PROVIDERS: Registered Nurse
DX: T84.53XA Infection and inflammatory reaction due to internal right knee prosthesis, initial encounter (principal); M00.261 Other streptococcal arthritis, right knee; A40.1 Sepsis due to streptococcus, group B; I12.9 Hypertensive chronic kidney disease with stage 1 through stage 4 chronic kidney disease, or unspecified chronic kidney disease; N18.30 Chronic kidney disease, stage 3 unspecified
CPT/HCPCS: 80053; 85025; 85651

== ENCOUNTER → 2022-11-18 | Outpatient (CLI) | payer OTHER ==
[2022-11-18 18:54] LABS: Hematocrit 33.3 % (37.0-53.0); Hemoglobin 10.9 g/dL (13.5-17.5); Mean Corpuscular HGB 28.5 pg (26.0-34.0); Mean Corpuscular HGB Conc 32.7 g/dL (31.5-36.5); Mean Corpuscular Volume 87 fL (80-100); Mean Platelet Volume 9.8 fL (9.1-12.4); Platelet Count 243 K/mm3 (150-400); RDW Coefficient Variation 15.1 % (11.7-14.2); RDW Standard Deviation 47.7 fL (35.1-46.3); Red Blood Cell Count 3.82 M/mm3 (4.30-5.90); White Blood Cell Count 7.39 K/mm3 (4.00-11.30)
[2022-11-18 19:26] LABS: Albumin, Blood 3.3 g/dL (3.4-5.0); Albumin/Globulin Ratio 0.6 (0.8-1.8); Bilirubin, Total 0.1 mg/dL (0.1-1.0); Bun/Creatinine Ratio 34.3 (12.0-20.0); C-REACTIVE PROTEIN, EXT RANGE 1.63 mg/dL (0.000-0.300); Calcium, Blood 9.7 mg/dL (8.5-10.1); Creatinine, Blood 1.02 mg/dL (0.60-1.20); Globulin, Blood 5.4 g/dL (2.2-4.0); Potassium, Blood 3.8 mmol/L (3.5-5.5); Total Protein, Blood 8.7 g/dL (6.4-8.2)
== END | disposition home or self-care (01) ==
LOC: LAB HH 17:30
PROVIDERS: Registered Nurse
DX: M00.861 Arthritis due to other bacteria, right knee (principal)
CPT/HCPCS: 80053; 85027; 85651; 86140

== ENCOUNTER → 2022-11-25 | Outpatient (CLI) | payer OTHER ==
[2022-11-25 13:32] LABS: Hematocrit 33.9 % (37.0-53.0); Hemoglobin 11.1 g/dL (13.5-17.5); Mean Corpuscular HGB 28.8 pg (26.0-34.0); Mean Corpuscular HGB Conc 32.7 g/dL (31.5-36.5); Mean Corpuscular Volume 88 fL (80-100); Mean Platelet Volume 10.2 fL (9.1-12.4); Platelet Count 167 K/mm3 (150-400); RDW Coefficient Variation 15.4 % (11.7-14.2); Red Blood Cell Count 3.85 M/mm3 (4.30-5.90); White Blood Cell Count 7.23 K/mm3 (4.00-11.30)
[2022-11-25 14:13] LABS: Albumin, Blood 3.4 g/dL (3.4-5.0); Albumin/Globulin Ratio 0.7 (0.8-1.8); Bilirubin, Total 0.3 mg/dL (0.1-1.0); C-REACTIVE PROTEIN, EXT RANGE 1.54 mg/dL (0.000-0.300); Calcium, Blood 9.9 mg/dL (8.5-10.1); Creatinine, Blood 0.86 mg/dL (0.60-1.20); Globulin, Blood 4.9 g/dL (2.2-4.0); Potassium, Blood 4.3 mmol/L (3.5-5.5); Total Protein, Blood 8.3 g/dL (6.4-8.2)
== END | disposition home or self-care (01) ==
LOC: LAB SHORT 12:06
PROVIDERS: Family Medicine
DX: T84.53XA Infection and inflammatory reaction due to internal right knee prosthesis, initial encounter (principal)
CPT/HCPCS: 80053; 85027; 85651; 86140

== ENCOUNTER → 2022-12-02 | Outpatient (CLI) | payer OTHER ==
[2022-12-02 18:04] LABS: BASOPHILS ABSOLUTE AUTO 0.06 K/mm3 (0.00-0.23); BASOPHILS PERCENT AUTO 1 % (0-2); EOSINOPHILS PERCENT AUTO 0 % (0-6); Hematocrit 36.1 % (37.0-53.0); Hemoglobin 11.4 g/dL (13.5-17.5); IMMATURE GRAN ABSOLUTE AUTO 0.04 K/mm3 (0.00-0.10); IMMATURE GRAN PERCENT AUTO 1 % (0-1); LYMPHOCYTES ABSOLUTE AUTO 2.12 K/mm3 (0.84-5.20); LYMPHOCYTES PERCENT AUTO 29 % (21-46); MONOCYTES ABSOLUTE AUTO 0.74 K/mm3 (0.16-1.47); MONOCYTES PERCENT AUTO 10 % (4-13); Mean Corpuscular HGB Conc 31.6 g/dL (31.5-36.5); Mean Corpuscular Volume 92 fL (80-100); Mean Platelet Volume 9.9 fL (9.1-12.4); NEUTROPHILS ABSOLUTE AUTO 4.28 K/mm3 (1.96-9.15); NEUTROPHILS PERCENT AUTO 59 % (41-73); Platelet Count 281 K/mm3 (150-400); RDW Standard Deviation 53.8 fL (35.1-46.3); Red Blood Cell Count 3.93 M/mm3 (4.30-5.90); White Blood Cell Count 7.24 K/mm3 (4.00-11.30)
== END | disposition home or self-care (01) ==
LOC: LAB SHORT 10:30 → LAB 10:30
PROVIDERS: Orthopaedic Surgery
DX: A40.1 Sepsis due to streptococcus, group B (principal); T84.53XA Infection and inflammatory reaction due to internal right knee prosthesis, initial encounter; M00.261 Other streptococcal arthritis, right knee
CPT/HCPCS: 85025

== ENCOUNTER → 2022-12-09 | Outpatient (CLI) | payer OTHER ==
[2022-12-09 17:42] LABS: BASOPHILS ABSOLUTE AUTO 0.04 K/mm3 (0.00-0.23); BASOPHILS PERCENT AUTO 1 % (0-2); EOSINOPHILS PERCENT AUTO 0 % (0-6); Hemoglobin 11.5 g/dL (13.5-17.5); IMMATURE GRAN ABSOLUTE AUTO 0.07 K/mm3 (0.00-0.10); IMMATURE GRAN PERCENT AUTO 1 % (0-1); LYMPHOCYTES ABSOLUTE AUTO 1.53 K/mm3 (0.84-5.20); LYMPHOCYTES PERCENT AUTO 25 % (21-46); MONOCYTES ABSOLUTE AUTO 0.57 K/mm3 (0.16-1.47); MONOCYTES PERCENT AUTO 9 % (4-13); Mean Corpuscular HGB 28.9 pg (26.0-34.0); Mean Corpuscular HGB Conc 31.1 g/dL (31.5-36.5); Mean Corpuscular Volume 93 fL (80-100); NEUTROPHILS ABSOLUTE AUTO 3.88 K/mm3 (1.96-9.15); NEUTROPHILS PERCENT AUTO 64 % (41-73); RDW Coefficient Variation 16.6 % (11.7-14.2); RDW Standard Deviation 56.1 fL (35.1-46.3); Red Blood Cell Count 3.98 M/mm3 (4.30-5.90); White Blood Cell Count 6.09 K/mm3 (4.00-11.30)
[2022-12-09 17:51] LABS: Albumin, Blood 3.8 g/dL (3.4-5.0); Albumin/Globulin Ratio 0.9 (0.8-1.8); Bilirubin, Total 0.3 mg/dL (0.1-1.0); Bun/Creatinine Ratio 25.5 (12.0-20.0); Calcium, Blood 9.8 mg/dL (8.5-10.1); Creatinine, Blood 0.98 mg/dL (0.60-1.20); Globulin, Blood 4.3 g/dL (2.2-4.0); Potassium, Blood 4.4 mmol/L (3.5-5.5); Total Protein, Blood 8.1 g/dL (6.4-8.2)
== END | disposition home or self-care (01) ==
LOC: LAB SHORT 16:14 → LAB 16:14
PROVIDERS: Registered Nurse
DX: T84.53XA Infection and inflammatory reaction due to internal right knee prosthesis, initial encounter (principal); M00.261 Other streptococcal arthritis, right knee
CPT/HCPCS: 80053; 85025

== ENCOUNTER → 2022-12-16 | Outpatient (CLI) | payer OTHER ==
[2022-12-16 18:51] LABS: BASOPHILS ABSOLUTE AUTO 0.05 K/mm3 (0.00-0.23); BASOPHILS PERCENT AUTO 1 % (0-2); EOSINOPHILS PERCENT AUTO 0 % (0-6); Hematocrit 37.1 % (37.0-53.0); Hemoglobin 11.3 g/dL (13.5-17.5); IMMATURE GRAN ABSOLUTE AUTO 0.06 K/mm3 (0.00-0.10); IMMATURE GRAN PERCENT AUTO 1 % (0-1); LYMPHOCYTES ABSOLUTE AUTO 1.59 K/mm3 (0.84-5.20); LYMPHOCYTES PERCENT AUTO 21 % (21-46); MONOCYTES ABSOLUTE AUTO 0.84 K/mm3 (0.16-1.47); MONOCYTES PERCENT AUTO 11 % (4-13); Mean Corpuscular HGB 28.8 pg (26.0-34.0); Mean Corpuscular HGB Conc 30.5 g/dL (31.5-36.5); Mean Corpuscular Volume 94 fL (80-100); NEUTROPHILS ABSOLUTE AUTO 5.01 K/mm3 (1.96-9.15); NEUTROPHILS PERCENT AUTO 66 % (41-73); RDW Coefficient Variation 16.5 % (11.7-14.2); Red Blood Cell Count 3.93 M/mm3 (4.30-5.90); White Blood Cell Count 7.55 K/mm3 (4.00-11.30)
== END | disposition home or self-care (01) ==
LOC: LAB SHORT 16:32 → LAB 16:32
PROVIDERS: Orthopaedic Surgery
DX: T84.53XA Infection and inflammatory reaction due to internal right knee prosthesis, initial encounter (principal); M00.261 Other streptococcal arthritis, right knee
CPT/HCPCS: 85025; 85651

== ENCOUNTER → 2022-12-19 | Outpatient (CLI) | payer OTHER ==
[2022-12-19 13:42] LABS: Bun/Creatinine Ratio 40.4 (12.0-20.0); C-REACTIVE PROTEIN, EXT RANGE 1.19 mg/dL (0.000-0.300); Calcium, Blood 10.1 mg/dL (8.5-10.1); Creatinine, Blood 1.04 mg/dL (0.60-1.20); Potassium, Blood 4.8 mmol/L (3.5-5.5)
== END | disposition home or self-care (01) ==
LOC: LAB SHORT 09:30 → LAB 09:30
PROVIDERS: Orthopaedic Surgery
DX: T84.53XA Infection and inflammatory reaction due to internal right knee prosthesis, initial encounter (principal); M00.261 Other streptococcal arthritis, right knee
CPT/HCPCS: 80048; 86140

== ENCOUNTER → 2022-12-30 | Outpatient (CLI) | payer OTHER ==
[2022-12-30 12:41] LABS: BASOPHILS ABSOLUTE AUTO 0.02 K/mm3 (0.00-0.23); BASOPHILS PERCENT AUTO 0 % (0-2); EOSINOPHILS ABSOLUTE AUTO 0.15 K/mm3 (0.00-0.68); EOSINOPHILS PERCENT AUTO 2 % (0-6); Hematocrit 34.5 % (37.0-53.0); Hemoglobin 11.3 g/dL (13.5-17.5); IMMATURE GRAN ABSOLUTE AUTO 0.04 K/mm3 (0.00-0.10); IMMATURE GRAN PERCENT AUTO 1 % (0-1); LYMPHOCYTES ABSOLUTE AUTO 1.65 K/mm3 (0.84-5.20); LYMPHOCYTES PERCENT AUTO 25 % (21-46); MONOCYTES ABSOLUTE AUTO 0.74 K/mm3 (0.16-1.47); MONOCYTES PERCENT AUTO 11 % (4-13); Mean Corpuscular HGB 29.3 pg (26.0-34.0); Mean Corpuscular HGB Conc 32.8 g/dL (31.5-36.5); Mean Corpuscular Volume 89 fL (80-100); Mean Platelet Volume 10.7 fL (9.1-12.4); NEUTROPHILS ABSOLUTE AUTO 3.91 K/mm3 (1.96-9.15); NEUTROPHILS PERCENT AUTO 60 % (41-73); Platelet Count 112 K/mm3 (150-400); RDW Coefficient Variation 15.9 % (11.7-14.2); RDW Standard Deviation 52.2 fL (35.1-46.3); Red Blood Cell Count 3.86 M/mm3 (4.30-5.90); White Blood Cell Count 6.51 K/mm3 (4.00-11.30)
[2022-12-30 13:00] LABS: Bun/Creatinine Ratio 30.8 (12.0-20.0); C-REACTIVE PROTEIN, EXT RANGE 4.16 mg/dL (0.000-0.300); Calcium, Blood 9.4 mg/dL (8.5-10.1); Creatinine, Blood 1.07 mg/dL (0.60-1.20); Potassium, Blood 4.3 mmol/L (3.5-5.5)
== END | disposition home or self-care (01) ==
LOC: LAB SHORT 11:56
PROVIDERS: Orthopaedic Surgery
DX: T84.53XA Infection and inflammatory reaction due to internal right knee prosthesis, initial encounter (principal); M00.261 Other streptococcal arthritis, right knee
CPT/HCPCS: 80048; 85025; 85651; 86140

== ENCOUNTER 2023-04-11 08:32 | Day surgery (SDC) | payer OTHER ==
[2023-04-11] VITALS (7 sets, daily range): BP systolic 135–169; BP diastolic 61–94
[~2023-04-11] VITALS: Ht 185.4 cm; Wt 102.1 kg
[~2023-04-11 08:32] MED LIST changes: +JARDIANCE25 MG PO; +NOVOLOG FL100 UNIT/3
--- NOTE | 2023-04-11 10:15 | NUR ---
PT BACK TO RECOVERY ROOM. PT ALERT AND TALKATIVE, SITTING UP IN RECLINER. PT GIVEN COFFEE AND BREAKFAST. PT TR BAND ON R WRIST. NO SWELLING OR BLEEDING NOTED. PT REMINDED TO AVOID USING R ARM. PT DEMONSTRATES UNDERSTANDING. PT SPOUSE CALLED AND WILL BE COMING AT 1130.
--- NOTE | 2023-04-11 11:30 | NUR ---
TR BAND IS FULLY DEFLATED. NO BLEEDING OR SWELLING NOTED. BAND LEFT IN PLACE. PT RESTING, WAKES EASILY TO VERBAL STIMULI. VSS.
--- NOTE | 2023-04-11 12:18 | NUR ---
PT AND SPOUSE VERBALIZE D/C INSTRUCTIONS. TR BAND REMOVED, SITE CLEAN, NO BLEEDING OR SWELLING. CLOTH DOT DRESSING APPLIED. WRIST BORARD REPLACED. IV D/C CATHETER INTACT. PT STEADY ON FEET. PT WHEELED OUT OF HOSPTIAL, SPOUSE GONZALO TO DRIVE PT HOME.
== END 2023-04-11 12:15 | disposition home or self-care (01) ==
LOC: MHTC 08:32
DX: R06.02 Shortness of breath (principal); I48.92 Unspecified atrial flutter; I11.0 Hypertensive heart disease with heart failure; I50.30 Unspecified diastolic (congestive) heart failure; I48.0 Paroxysmal atrial fibrillation; E78.5 Hyperlipidemia, unspecified; E11.9 Type 2 diabetes mellitus without complications
CPT/HCPCS: 76937; 93454; 99152; 99153; A9270; C1769; C1887; C1894; J1644; J2250; J3010; J7030; J7050; Q9967

== ENCOUNTER 2024-05-21 23:44 | Emergency (ER) | payer OTHER ==
[~2024-05-21] VITALS: Ht 188 cm; Wt 97.5 kg
[2024-05-22] MEDS ORDERED: FentaNYL Citrate 50 MCG/ML 2 ML Injection IV PRN (00:10)
[2024-05-22] MEDS ORDERED: HYDROmorphone HCl/Pf 1MG SYR IV PRN (00:20)
[2024-05-22 00:37] LABS: BASOPHILS ABSOLUTE AUTO 0.12 K/mm3 (0.00-0.23); BASOPHILS PERCENT AUTO 1 % (0-2); EOSINOPHILS ABSOLUTE AUTO 0.54 K/mm3 (0.00-0.68); EOSINOPHILS PERCENT AUTO 4 % (0-6); Hematocrit 33.8 % (37.0-53.0); IMMATURE GRAN ABSOLUTE AUTO 0.05 K/mm3 (0.00-0.10); IMMATURE GRAN PERCENT AUTO 0 % (0-1); LYMPHOCYTES ABSOLUTE AUTO 2.15 K/mm3 (0.84-5.20); LYMPHOCYTES PERCENT AUTO 18 % (21-46); MONOCYTES ABSOLUTE AUTO 0.96 K/mm3 (0.16-1.47); MONOCYTES PERCENT AUTO 8 % (4-13); Mean Corpuscular HGB 27.7 pg (26.0-34.0); Mean Corpuscular HGB Conc 32.5 g/dL (31.5-36.5); Mean Corpuscular Volume 85 fL (80-100); Mean Platelet Volume 10.9 fL (9.1-12.4); NEUTROPHILS ABSOLUTE AUTO 8.32 K/mm3 (1.96-9.15); NEUTROPHILS PERCENT AUTO 69 % (41-73); Platelet Count 169 K/mm3 (150-400); RDW Coefficient Variation 14.6 % (11.7-14.2); RDW Standard Deviation 45.1 fL (35.1-46.3); Red Blood Cell Count 3.97 M/mm3 (4.30-5.90); White Blood Cell Count 12.14 K/mm3 (4.00-11.30)
[2024-05-22 00:56] LABS: International Normalized Ratio 1.05; Prothrombin Time Results 11.2 Sec (9.7-11.5)
[2024-05-22 00:59] LABS: Albumin, Blood 3.6 g/dL (3.4-5.0); Albumin/Globulin Ratio 0.8 (0.8-1.8); Bilirubin, Total 0.2 mg/dL (0.1-1.0); Bun/Creatinine Ratio 33.9 (12.0-20.0); Calcium, Blood 9.9 mg/dL (8.5-10.1); Creatinine, Blood 0.91 mg/dL (0.60-1.20); Globulin, Blood 4.4 g/dL (2.2-4.0); Potassium, Blood 4.4 mmol/L (3.5-5.5)
[2024-05-22] MEDS ORDERED: Midazolam HCl 1MG / ML 2ML Vial IV SCH (01:55)
[2024-05-22] MEDS ORDERED: Ketamine HCl 100 MG / ML 5ML Vial IV ONE (01:55)
[2024-05-22 02:30] VITALS: BP 180/88
== END 2024-05-22 04:55 | disposition home or self-care (01) ==
LOC: ER 23:44
PROVIDERS: Emergency Medicine
DX: S43.004A Unspecified dislocation of right shoulder joint, initial encounter (principal); I10 Essential (primary) hypertension; E78.00 Pure hypercholesterolemia, unspecified; I48.91 Unspecified atrial fibrillation; E11.9 Type 2 diabetes mellitus without complications; M54.50 Low back pain, unspecified; W01.0XXA Fall on same level from slipping, tripping and stumbling without subsequent striking against object, initial encounter; Z87.891 Personal history of nicotine dependence; Z79.84 Long term (current) use of oral hypoglycemic drugs; Z79.4 Long term (current) use of insulin; Z79.899 Other long term (current) drug therapy
CPT/HCPCS: 23650; 70450; 72125; 73020; 73030; 73060; 73090; 80053; 85025; 85610; 85730; 93005; 93010; 96374-59; 96376-59; 99152; 99153; 99284-25; J1170; J1171; J2250